=== PATIENT | male | born 1965 | race Caucasian/White ===

== ENCOUNTER → 2019-01-01 | Outpatient (CLI) | payer OTHER ==
--- NOTE | 2019-01-01 11:42 | PCVCIMAG ---
EXAM: BILATERAL LOWER EXTREMITY ARTERIAL DUPLEX INDICATION: Peripheral Arterial Disease. Leg pain. Nonhealing ulcer left lower leg medially. FINDINGS: Right Leg: Satisfactory arterial waveforms throughout the common/profunda/superficial femoral, popliteal, anterior tibial, peroneal, and posterior tibial arteries. No flow limiting stenosis seen. Left Leg: Satisfactory arterial waveforms throughout the common/profunda/superficial femoral, popliteal, anterior tibial, peroneal, and posterior tibial arteries. No flow limiting stenosis seen. IMPRESSION: No flow limiting stenosis in the right lower extremity. No flow limiting stenosis in the left lower extremity. LOC:[id number]
--- NOTE | 2019-01-01 16:38 | PCVCIMAG ---
EXAM: LEFT SUPERFICIAL VENOUS DUPLEX INDICATION: Leg pain and swelling. FINDINGS: Left leg: No thrombus in the common femoral, main femoral, or popliteal veins. These veins are compressible. Left Great Saphenous Vein: At the saphenofemoral junction the diameter is 6.0 mm, in the mid thigh it is surgically absent , and in the calf it is 6.2 mm. There is significant venous insufficiency/reflux primarily below the knee. Venous insufficiency/reflux duration is 4.3 seconds. Left Small Saphenous Vein: At the saphenopopliteal junction the diameter is 4.5 mm, and in the calf it is 4.9 mm. There is significant venous insufficiency/reflux throughout. Venous insufficiency/reflux duration is 2.2 seconds. There not a cranial extension present. IMPRESSION: Left Great Saphenous Vein: Significant venous insufficiency/reflux is present below the knee. Note is made the great saphenous vein is absent in the mid upper thigh consistent with previous surgical stripping and is tortuous in its lower portion. Left Small Saphenous Vein: Significant venous insufficiency/reflux is present as noted above. LOC:[id number]
== END | disposition home or self-care (01) ==
LOC: PCVCIMAG 11:13
PROVIDERS: ATTEND Family Medicine
DX: I73.9 Peripheral vascular disease, unspecified (principal); I87.2 Venous insufficiency (chronic) (peripheral); L97.909 Non-pressure chronic ulcer of unspecified part of unspecified lower leg with unspecified severity; M79.89 Other specified soft tissue disorders; I87.303 Chronic venous hypertension (idiopathic) without complications of bilateral lower extremity; Z87.891 Personal history of nicotine dependence
CPT/HCPCS: 93925; 93970; 93971